=== PATIENT | female | born 1985 | race Caucasian/White ===

== ENCOUNTER 2016-12-24 18:31 | Emergency (ER) | payer OTHER ==
[~2016-12-24] VITALS: Ht 162.6 cm; Wt 62.0 kg
[2016-12-24 20:36] LABS: BASOPHILS % 0.4 % (0.0-2.0); EOSINOPHILS % 0.5 % (0.0-5.0); HEMATOCRIT. 31.5 % (36.0-48.0); HEMOGLOBIN. 10.2 g/dL (12.0-16.0); LYMPHOCYTES % 28.2 % (20.0-50.0); MEAN CORPUSCULAR HEMOGLOBIN 26.3 pg (28.0-32.0); MEAN CORPUSCULAR VOLUME 80.7 fL (81.0-99.0); MEAN PLATELET VOLUME 8.1 fl (7.4-10.4); MONOCYTES % 6.2 % (2.0-8.0); NEUTROPHILS % 64.7 % (40.0-76.0); PLATELET 354 x1000/uL (130-400); RED CELL DISTRIBUTION WIDTH 16.1 % (11.6-14.6)
[2016-12-24 20:44] LABS: PROTHROMBIN TIME 10.9 sec (9.4-11.6)
[2016-12-24 20:47] LABS: CARBON DIOXIDE 25 mEq/L (21-32); CHLORIDE 105 mEq/L (98-107)
[2016-12-24 20:53] LABS: HCG SCREEN NEGATIVE
[2016-12-24 22:07] VITALS: BP 133/79
== END 2016-12-24 23:00 | disposition home or self-care (01) ==
LOC: ER 18:31
DX: N93.8 Other specified abnormal uterine and vaginal bleeding (principal)
CPT/HCPCS: 36415; 80053; 84703; 85025; 85610; 99284; Z7610